=== PATIENT | female | born 1950 | race Caucasian/White ===

== ENCOUNTER 2017-10-06 15:46 | Emergency (ER) | payer MEDICARE, MEDICAID ==
[~2017-10-06] VITALS: Ht 162.6 cm; Wt 76.0 kg
[~2017-10-06 15:46] MED LIST: NO HOME MEDS
[2017-10-06] MEDS ORDERED: ondansetron/PF 4mg/2ml inj IV ONE (16:20)
[2017-10-06] MEDS ORDERED: normal saline 1000ML IV soln IVB ONE (16:20)
[2017-10-06] MEDS ORDERED: iohexol 350MG/ML 100ml bottle IV ONE (16:24)
[2017-10-06 16:25] LABS: BASOPHILS % (AUTO) 0.5 % (0-1); EOSINOPHILS # (AUTO) 0.1 X10'3 (0-0.9); EOSINOPHILS % (AUTO) 1.6 % (0-6); HEMOGLOBIN 14.7 g/dl (12.0-16.0); LYMPHOCYTES # (AUTO) 1.8 X10'3 (1.1-4.8); LYMPHOCYTES % (AUTO) 20.1 % (21-51); MEAN CORPUSCULAR HEMOGLOBIN 30.4 PG (27.0-31.0); MEAN CORPUSCULAR HGB CONC 34.2 % (33.0-36.5); MEAN PLATELET VOLUME 7.3 FL (7.4-10.4); MONOCYTES # (AUTO) 0.8 X10'3 (0-0.9); NEUTROPHILS # (AUTO) 6.3 X10'3 (1.8-7.7); NEUTROPHILS % (AUTO) 68.8 % (42-75); PLATELET COUNT 224 X10'3 (140-440); RED BLOOD COUNT 4.83 X10'6 (4.20-5.60); RED CELL DISTRIBUTION WIDTH 13.1 % (11.5-14.5); WHITE BLOOD COUNT 9.2 X10'3 (4.5-11.0)
[2017-10-06 16:34] LABS: INR 0.9 INR; PARTIAL THROMBOPLASTIN TIME 23 SECONDS (22-32); PROTHROMBIN TIME 9.6 SECONDS (9.0-12.0)
[2017-10-06 16:39] LABS: ALANINE AMINOTRANSFERASE 26 U/L (12-78); ALBUMIN 3.6 G/DL (3.4-5.0); ALKALINE PHOSPHATASE 100 IU/L (46-116); ANION GAP 9 (8-16); ASPARTATE AMINO TRANSFERASE 17 U/L (10-37); BILIRUBIN,TOTAL 0.4 MG/DL (0.1-1.0); BLOOD UREA NITROGEN 17 MG/DL (7-18); CALCIUM 9.2 MG/DL (8.5-10.1); CHLORIDE 110 MMOL/L (99-107); CREATININE 0.85 MG/DL (0.40-0.90); GLUCOSE 97 MG/DL (70-104); POTASSIUM 3.6 MMOL/L (3.5-5.1); SODIUM 146 MMOL/L (135-145); TOTAL CARBON DIOXIDE 26.6 MMOL/L (24-32); TOTAL PROTEIN 7.2 G/DL (6.4-8.2); eGFR 67 ML/MIN
[2017-10-06 16:42] LABS: TROPONIN I < 0.04 NG/ML (0.0-0.05)
[2017-10-06 20:09] VITALS: BP 125/82
== END 2017-10-06 20:21 | disposition home or self-care (01) ==
LOC: ER 15:46
DX: G44.59 Other complicated headache syndrome (principal); I67.1 Cerebral aneurysm, nonruptured; J44.9 Chronic obstructive pulmonary disease, unspecified; F12.10 Cannabis abuse, uncomplicated; Z98.890 Other specified postprocedural states
CPT/HCPCS: 36415; 70450; 70496; 70544; 70551; 71045; 80053; 82948; 84484; 85025; 85610; 85730; 93005; 99291; J7030; Q9967